=== PATIENT | male | born 1975 | race Caucasian/White ===

== ENCOUNTER 2018-10-21 04:26 | Emergency (ER) | payer MEDICAID, OTHER ==
[~2018-10-21] VITALS: Ht 175.3 cm; Wt 88.5 kg
[2018-10-21] MEDS ORDERED: SODIUM CHLORIDE 0.9% 1,000 ML IV ONE (06:59)
[2018-10-21] MEDS ORDERED: KETOROLAC TROMETH 30 MG/ML 1ML VIAL IV ONE (07:00)
[2018-10-21] MEDS ORDERED: ONDANSETRON HCL 4 MG/2 ML VIAL IV ONE (07:00)
[2018-10-21 08:37] LABS: Urine WBC None Seen /hpf (0 - 3)
[2018-10-21 08:58] LABS: Urine Amorphous Crystal FEW /hpf (None Seen); Urine Bacteria NONE SEEN /hpf (None Seen); Urine Blood Negative /uL (Negative); Urine Specific Gravity 1.012 (1.001-1.035)
[2018-10-21 09:03] LABS: INR 0.99 (0.9-1.15); Partial Thromboplastin Time 26.8 sec (23.78-33.04); Prothrombin Time 10.6 sec (9.27-12.13)
[2018-10-21 09:06] LABS: Alcohol, Urine < 3.0 mg/dL (0-5); Amphetamine Screen, Urine NEGATIVE (NEGATIVE); Barbiturate Scree,Urine NEGATIVE (NEGATIVE); Benzodiazephine Screen, Urine NEGATIVE (NEGATIVE); Cannabinoid Screen, Urine NEGATIVE (NEGATIVE); Cocaine Screen, Urine NEGATIVE (NEGATIVE); Opiate Scree,Urine NEGATIVE (NEGATIVE); Phencyclidine Screen, Urine NEGATIVE (NEGATIVE)
[2018-10-21 09:07] LABS: Albumin 3.9 g/dL (3.4-5.0); Anion Gap 9 (5-15); Blood Urea Nitrogen 10 mg/dL (7-18); Calcium 8.1 mg/dL (8.5-10.1); Carbon Dioxide 19 mmol/L (21-32); Chloride 102 mmol/L (98-107); Glucose 88 mg/dL (74-106); Magnesium 2.4 mg/dL (1.6-2.6); Potassium 4.5 mmol/L (3.5-5.1); Sodium 130 mmol/L (136-145)
[2018-10-21 09:13] LABS: Alanine Aminotransferase 50 U/L (16-61); Alkaline Phosphatase 87 U/L (45-117); Aspartate Aminotransferase 40 U/L (15-37); BUN/Creatinine Ratio 10.4; Bilirubin, Total 0.3 mg/dL (0.2-1.0); GFR African American 110 mL/min; GFR Non-African American 91 mL/min; Total Protein 7.1 g/dL (6.4-8.2)
[2018-10-21 09:59] LABS: Basophils # (auto) 0 uL; Basophils % (auto) 0.5 % (0.0-2.0); Eosinophils # (auto) 0.2 uL; Eosinophils % (auto) 2.7 % (0.0-7.0); Hematocrit 46.2 % (41.0-53.0); Hemoglobin 15.8 g/dL (13.5-17.5); Lymphocytes % (auto) 24.3 % (10.0-50.0); Mean Corpuscular Hemoglobin 30.8 pg (28.0-32.0); Mean Corpuscular Hgb Conc. 34.2 g/dL (32.0-36.0); Mean Corpuscular Volume 89.9 fL (80.0-100.0); Monocytes # (auto) 0.7 uL; Neutrophils # (auto) 5.4 uL; Neutrophils % (auto) 64.5 % (37.0-80.0); Nucleated Red Blood Cells % 0.1 %; Platelet Count (auto) 236 10^3/uL (140-450); Red Blood Cells 5.14 10^6/uL (4.5-5.90); Red Cell Distribution Width 13.1 % (11.8-14.3); White Blood Cell 8.3 10^3/uL (4.4-10.8)
[2018-10-21 11:36] VITALS: BP 110/81
== END 2018-10-21 11:38 | disposition home or self-care (01) ==
LOC: EDBD 04:26 → ER 04:34
DX: R07.81 Pleurodynia (principal); G40.909 Epilepsy, unspecified, not intractable, without status epilepticus; E87.1 Hypo-osmolality and hyponatremia; I11.0 Hypertensive heart disease with heart failure; I50.9 Heart failure, unspecified; Z86.73 Personal history of transient ischemic attack (TIA), and cerebral infarction without residual deficits
CPT/HCPCS: 36415; 71045; 80053; 80307; 81001; 83735; 83880; 84443; 84484; 85025; 85610; 85730; 93005; 94761; 96374; 96375; 99284; J1885; J2405; J7030

== ENCOUNTER 2019-08-14 09:19 | Inpatient (IN) | payer SELFPAY ==
[~2019-08-14] VITALS: Ht 177.8 cm; Wt 77.1 kg
[2019-08-14] MEDS ORDERED: SODIUM CHLORIDE 0.9% 1,000 ML IVB ONE (09:36)
[2019-08-14] MEDS ORDERED: LEVETIRACETAM INJ 1,000 MG in D5W 5% 100 ML IV ONE (09:45)
[2019-08-14 09:59] LABS: Basophils # (auto) 0 uL; Basophils % (auto) 0.8 % (0.0-2.0); Eosinophils # (auto) 0.2 uL; Eosinophils % (auto) 4.9 % (0.0-7.0); Hematocrit 44.5 % (41.0-53.0); Hemoglobin 14.9 g/dL (13.5-17.5); Lymphocytes # (auto) 1.1 uL; Lymphocytes % (auto) 24.2 % (10.0-50.0); Mean Corpuscular Hemoglobin 31.8 pg (28.0-32.0); Mean Corpuscular Hgb Conc. 33.6 g/dL (32.0-36.0); Mean Corpuscular Volume 94.7 fL (80.0-100.0); Monocytes # (auto) 0.6 uL; Monocytes % (auto) 12.9 % (0.0-12.0); Neutrophils # (auto) 2.5 uL; Neutrophils % (auto) 57.2 % (37.0-80.0); Platelet Count (auto) 183 10^3/uL (140-450); Red Cell Distribution Width 14.2 % (11.8-14.3); White Blood Cell 4.4 10^3/uL (4.4-10.8)
[2019-08-14 10:17] LABS: Albumin 3.4 g/dL (3.4-5.0); BUN/Creatinine Ratio 9.5; Calcium 8.4 mg/dL (8.5-10.1)
[2019-08-14 10:19] LABS: Bilirubin, Total 0.4 mg/dL (0.2-1.0); Total Protein 6.1 g/dL (6.4-8.2)
[2019-08-14] MEDS ORDERED: CLINDAMYCIN 600MG IV 50 ML IV ONE (11:15)
[2019-08-14] MEDS ORDERED: cefTRIAXone 1GM/50ML D5W 50 ML IV SCH (13:27)
[2019-08-14] MEDS ORDERED: FOLIC ACID 1 MG, MULTIPLE VITAMIN 10 ML, MAGNESIUM SULF SDV 50% 8 MEQ, THIAMINE INJ 100... INJ SCH ×5 (13:29)
[2019-08-14] MEDS ORDERED: hydrALAZINE HCL 20 MG/ML VL IV PRN (13:30)
[2019-08-14] MEDS ORDERED: NITROGLYCERIN 0.4 MG SL TAB SL PRN (13:30)
[2019-08-14] MEDS ORDERED: LORazepam 2MG/ML-1ML VIAL IV PRN (13:30)
[2019-08-14] MEDS ORDERED: MORPHINE SULF INJ 2 MG/ML SYRINGE 1ML IV PRN (13:30)
[2019-08-14 13:45] LABS: Cholesterol 133 mg/dL (< 200)
[2019-08-14 13:47] LABS: HDL Cholesterol 38 mg/dL (40-59); LDL Cholesterol 88 mg/dL (< 100); Triglycerides 73 mg/dL (< 150)
[2019-08-14 14:00] VITALS: BP 121/85
[2019-08-14 16:17] LABS: Urine Bacteria NONE SEEN /hpf (None Seen); Urine Blood Negative /uL (Negative); Urine Mucus FEW (None Seen); Urine Specific Gravity 1.012 (1.001-1.035); Urine WBC 1 /hpf (0 - 3)
--- NOTE | 2019-08-14 16:23 | NUR ---
assessment Per consult patient homeless. Patient left AMA prior to being assessed. Addendum: 08/15/19 at 0823 by Bia Castillo Amended: Links added.
[2019-08-14 16:30] LABS: Alcohol, Urine < 3.0 mg/dL (0-5); Amphetamine Screen, Urine NEGATIVE (NEGATIVE); Barbiturate Scree,Urine NEGATIVE (NEGATIVE); Benzodiazephine Screen, Urine NEGATIVE (NEGATIVE); Cannabinoid Screen, Urine NEGATIVE (NEGATIVE); Cocaine Screen, Urine NEGATIVE (NEGATIVE); Opiate Scree,Urine NEGATIVE (NEGATIVE); Phencyclidine Screen, Urine NEGATIVE (NEGATIVE)
[2019-08-14] MEDS ORDERED: CLINDAMYCIN 300MG IV 50 ML IV SCH (22:00)
[2019-08-14] MEDS ORDERED: LEVETIRACETAM INJ 1,000 MG in D5W 5% 100 ML IV SCH (22:00)
[2019-08-15] MEDS ORDERED: ASPirin 81 mg TAB PO SCH (10:00)
== END 2019-08-14 16:06 | disposition left against medical advice (07) | DRG 101 ==
LOC: EDBD 09:19 → ER 09:27 → OVERFLOW 09:28
PROVIDERS: ADMIT Nurse Practitioner Acute Care; ATTEND Nurse Practitioner Acute Care
DX: G40.909 Epilepsy, unspecified, not intractable, without status epilepticus (principal); L03.115 Cellulitis of right lower limb; I69.354 Hemiplegia and hemiparesis following cerebral infarction affecting left non-dominant side; L03.116 Cellulitis of left lower limb; Z53.29 Procedure and treatment not carried out because of patient's decision for other reasons; E78.5 Hyperlipidemia, unspecified; I11.0 Hypertensive heart disease with heart failure; I50.9 Heart failure, unspecified; Z59.0 Homelessness; Z87.820 Personal history of traumatic brain injury; Z86.718 Personal history of other venous thrombosis and embolism; Z72.0 Tobacco use
CPT/HCPCS: 36415; 70450; 80053; 80061; 80307; 81001; 82542; 85025; 93970; 94761; 96365; 96367; G0378; J0696; J3490; J7060